=== PATIENT | female | born 1990 | race Caucasian/White ===

== ENCOUNTER 2016-11-29 11:08 | Emergency (ER) | payer OTHER ==
[~2016-11-29] VITALS: Ht 160 cm; Wt 61.2 kg
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
[~2016-11-29 11:08] MED LIST: ALBUTEROL17 GM INH; AMOXIL500 M1 PO; AZITHROMYCIN250 MG PO; BACTRIM DS TABL1 TA1 PO; BENADRYL PO; BENADRYL25 M3 PO; BENADRYL25 MG PO; BUSPAR; CIPRO PO; COLACE PO; DELTASONE20 MG PO; DICLOFENAC PO; FLEXERIL10 MG PO; HYDROCODON-ACE1 EAC7 PO; HYDROCODONE/APA1 T16 PO; IBUPROFEN PO; IBUPROFEN800 MG PO; IRON SUPPLEMENT1 TAB PO; KEFLEX500 MG PO; LORTAB 10/500 T1 TAB PO; LORTAB 101 TAB 10/5 PO; LORTAB 5/500 TA1 TA1 PO; MACROBID 100 M100 MG PO; MOTRIN600 MG PO; NAPROXEN PO; NO MEDICATIONS; ORUDIS75 M1 DOB; PEPCID PO; PEPCID40 MG PO; PERCOCET 5-3251 TAB PO; PERCOCET5/325 PO; PHENERGAN PO; PHENERGAN25 M1 PO; PHENERGAN25 MG PO; PREDNISONE PO; PREVACID 24HR15 MG DOB; PYRIDIUM PO; REGLAN PO; TESSALON200 MG PO; TYLENOL #3; TYLENOL #3 PO; ULTRAM PO; VOLTAREN50 MG PO; VOLTAREN75 MG PO; ZITHROMAX PO; ZOFRAN ODT4 MG PO; ZOFRANODT PO; ZOLOFT; [UNRECOGNIZED DRUG - OTHER]
== END 2016-11-29 13:07 | disposition home or self-care (01) ==
LOC: SED 11:08
DX: S30.0XXA Contusion of lower back and pelvis, initial encounter (principal); D64.9 Anemia, unspecified; J45.909 Unspecified asthma, uncomplicated; F17.210 Nicotine dependence, cigarettes, uncomplicated; Z79.899 Other long term (current) drug therapy; W01.0XXA Fall on same level from slipping, tripping and stumbling without subsequent striking against object, initial encounter; Y92.009 Unspecified place in unspecified non-institutional (private) residence as the place of occurrence of the external cause
CPT/HCPCS: 72220; 96372; 99283; J1885